=== PATIENT | male | born 1995 | race African-American/Black ===

== ENCOUNTER 2019-12-02 00:56 | Emergency (ER) | payer MEDICAID ==
[~2019-12-02] VITALS: Ht 182.9 cm; Wt 115.0 kg
[2019-12-02 01:08] VITALS: BP 158/87
== END 2019-12-02 03:30 | disposition left against medical advice (07) ==
LOC: ER 00:56
DX: Z53.21 Procedure and treatment not carried out due to patient leaving prior to being seen by health care provider (principal)
CPT/HCPCS: 93005